=== PATIENT | female | born 1970 | race Caucasian/White ===

== ENCOUNTER 2019-05-08 10:27 | Outpatient (CLI) | payer BC ==
--- NOTE | 2019-05-08 12:08 | MRI ---
MR of the leftankle without contrast INDICATION: Achilles tendinitis TECHNIQUE: T1, T2 fat sat, PD fat sat axial in addition to sagittal T1, T2 fat sat and coronal PD fat sat sequences were obtained of the leftankle. COMPARISON: None. FINDINGS: Motion artifact limits image detail Ligaments: ATFL: Intact. PTFL: Intact. Calcaneofibular ligament: Intact. Syndesmotic ligaments: Intact. Deltoid ligament: Intact. Spring ligament: Intact. Visualized Lisfranc ligament: Intact. Tendons: Peroneal tendons: There is a partial-thickness split tear of the peroneus brevis originating just pos terior to the lateral malleolus extending to the level of the lateral retinaculum. There is mild peroneal tenosynovitis . Peroneus longus appears intact. Posterior tibialis: Intact without tenosynovitis. Flexor digitorum longus: Intact without tenosynovitis. Flexor hallucis longus: Intact without tenosynovitis. Extensor hallucis longus: Intact without tenosynovitis. Tibialis anterior: Intact without tenosynovitis. Extensor digitorum longus: Intact without tenosynovitis. Achilles tendon There is moderate tendinosis with a partial-thickness tear involving the anterior lat eral aspect of the Achilles tendon, just proximal to its insertion, best seen on image 24 series 7 and image 13 of series 8. There is moderate Achilles paratenonitis. There is moderate enthesopathic change off the posterior and plantar calcaneus. Tibiotalar joint: Talar Dome: Intact without evidence of osteochondral defect Joint effusion: None. Subtalar joint: Intact. Bones: Bone marrow signal intensity appears within normal limits. Sinus Tarsi: Normal signal intensity. Plantar fascia: Normal appearing. Visualized intrinsic foot musculature: Normal appearing.. IMPRESSION: 1. Moderate Achilles tendinosis with moderate paratenonitis and a partial-thickness low-grade tear in volving the anterior and lateral aspect of the Achilles tendon just proximal to its insertion. 2. Partial-thickness split tear of the peroneus brevis with mild peroneal tenosynovitis
== END 2019-05-08 10:28 | disposition home or self-care (01) ==
LOC: BICMRI 10:27
PROVIDERS: ATTEND Orthopaedic Surgery
DX: M76.62 Achilles tendinitis, left leg (principal); S86.012A Strain of left Achilles tendon, initial encounter